=== PATIENT | male | born 1945 | race Caucasian/White ===

== ENCOUNTER → 2019-05-07 | Outpatient (CLI) | payer MEDICARE, BC ==
[~2019-05-07] MED LIST: Triamcinolone Acetonide 40 MG/ML 1 ML MDV IARTIC ONE
== END ==
LOC: FB.ORTHO 08:00
PROVIDERS: ATTEND Orthopaedic Surgery
DX: M77.01 Medial epicondylitis, right elbow (principal)
CPT/HCPCS: 20550; 99203; J3301

== ENCOUNTER 2022-11-13 06:38 | Day surgery (SDC) | payer MEDICARE ==
[2022-11-13] MEDS ORDERED: Midazolam 1 MG/ML 2 ML SDV IV ONE (06:39)
[2022-11-13] MEDS ORDERED: Sodium Chloride 0.9% 10 ML Syringe IV ONE (06:39)
[2022-11-13] MEDS ORDERED: fentaNYL 100 MCG/2 ML SDV IV ONE (06:39)
[2022-11-13] MEDS ORDERED: Sodium Chloride 0.9% 10 ML Syringe FLUSH PRN (06:45)
[2022-11-13] MEDS ORDERED: Lactated Ringers 1,000 ML IV PRN (06:45)
[2022-11-13] MEDS ORDERED: acetaZOLAMIDE 500 MG Cap.ER PO ONE (09:00)
== END 2022-11-13 09:34 | disposition home or self-care (01) ==
LOC: FB.SDS 06:38
PROVIDERS: ATTEND Ophthalmology
DX: H25.813 Combined forms of age-related cataract, bilateral (principal); H35.033 Hypertensive retinopathy, bilateral; I10 Essential (primary) hypertension; H43.813 Vitreous degeneration, bilateral; H40.013 Open angle with borderline findings, low risk, bilateral; F17.200 Nicotine dependence, unspecified, uncomplicated; Z79.82 Long term (current) use of aspirin; Z79.899 Other long term (current) drug therapy
CPT/HCPCS: 00142; 66984; A9270; J2250; J3010; J3490

== ENCOUNTER 2022-12-18 07:29 | Day surgery (SDC) | payer MEDICARE ==
[2022-12-18] MEDS ORDERED: Sodium Chloride 0.9% 10 ML Syringe FLUSH PRN (07:30)
[2022-12-18] MEDS ORDERED: Midazolam 1 MG/ML 2 ML SDV IV ONE (07:30)
[2022-12-18] MEDS ORDERED: Lactated Ringers 1,000 ML IV PRN (07:30)
[2022-12-18] MEDS ORDERED: fentaNYL 100 MCG/2 ML SDV IV ONE (07:30)
[2022-12-18] MEDS ORDERED: Sodium Chloride 0.9% 10 ML Syringe IV ONE (07:30)
[2022-12-18] MEDS ORDERED: acetaZOLAMIDE 500 MG Cap.ER PO ONE (09:30)
== END 2022-12-18 10:00 | disposition home or self-care (01) ==
LOC: FB.SDS 07:29
PROVIDERS: ATTEND Ophthalmology
DX: H26.9 Unspecified cataract (principal); I10 Essential (primary) hypertension; Z79.82 Long term (current) use of aspirin; Z79.899 Other long term (current) drug therapy; Z98.41 Cataract extraction status, right eye; Z96.1 Presence of intraocular lens; Z87.891 Personal history of nicotine dependence; Z85.01 Personal history of malignant neoplasm of esophagus
CPT/HCPCS: 00142; A9270-GY; J2250; J3010; J3490; V2632